=== PATIENT | female | born 1990 | race Two or more races ===

== ENCOUNTER 2023-08-16 15:10 | Emergency (ER) | payer MEDICAID, OTHER ==
[~2023-08-16] VITALS: Ht 162.6 cm; Wt 59.1 kg
[2023-08-16 15:18] VITALS: TEMP 97.2
[2023-08-16] MEDS: TETanus/Pertussis (Acell)/Diphther VAC/PF (Tdap-Adult) 0.5ml syringe IMVAC ONE (15:30)
[2023-08-16] MEDS: oxyCODONE/APAP 10/325mg tablet PO ONE (15:31)
[2023-08-16] MEDS: ondansetron 4mg rapidly disintigrating tab PO ONE (15:31)
[2023-08-16] MEDS: LIDOcaine 1% W/epiNEPHrine 1:100,000 20ml vial SQ ONE (15:32)
[2023-08-16] MEDS ORDERED: HYDR-3965 PO (18:03)
[2023-08-16] MEDS ORDERED: CEPH-585 PO (18:03)
[2023-08-16 18:11] VITALS: BP 124/81; PULSE 84; RESP 18; O2SAT 100
== END 2023-08-16 18:15 | disposition home or self-care (01) ==
LOC: ER 15:11
DX: S61.213A Laceration without foreign body of left middle finger without damage to nail, initial encounter (principal); S61.215A Laceration without foreign body of left ring finger without damage to nail, initial encounter; X58.XXXA Exposure to other specified factors, initial encounter; Y93.89 Activity, other specified; Y92.89 Other specified places as the place of occurrence of the external cause; Y99.8 Other external cause status
CPT/HCPCS: 12041; 73130; 90471; 90715; 99284; A6223; J7030; 99283; A6258; A6449

== ENCOUNTER 2023-09-16 07:57 | Outpatient (CLI) | payer MEDICAID | END 2023-09-16 23:59 | disposition home or self-care (01) | LOC: RAD 07:57 | PROVIDERS: ATTEND Obstetrics & Gynecology | DX: O09.91 Supervision of high risk pregnancy, unspecified, first trimester (principal); Z3A.13 13 weeks gestation of pregnancy | CPT/HCPCS: 76805 ==

== ENCOUNTER 2023-09-22 16:56 | Emergency (ER) | payer MEDICAID ==
[~2023-09-22] VITALS: Ht 165.1 cm; Wt 56.8 kg
[2023-09-22 17:05] VITALS: BP 123/71; PULSE 109; O2SAT 100
[2023-09-22 17:28] VITALS: RESP 16; TEMP 98
[2023-09-22] MEDS ORDERED: DIPH12.510 PO (17:28)
[2023-09-22] MEDS ORDERED: PREN-16 PO (17:28)
== END 2023-09-22 17:33 | disposition home or self-care (01) ==
LOC: ER 16:57
DX: G47.62 Sleep related leg cramps (principal); Z79.899 Other long term (current) drug therapy
CPT/HCPCS: 99282